=== PATIENT | female | born 1995 | race American Indian/Alaskan Native ===

== ENCOUNTER 2016-12-03 21:33 | Emergency (ER) | payer MEDICAID ==
[2016-04-13 15:33] VITALS: BMI 25.0
[2016-12-04 04:06] VITALS: BP 122/69; PULSE 88; TEMP 98
== END 2016-12-03 23:30 | disposition home or self-care (01) ==
LOC: H.EROB2 21:33
DX: O47.1 False labor at or after 37 completed weeks of gestation (principal); Z3A.40 40 weeks gestation of pregnancy; O48.0 Post-term pregnancy